=== PATIENT | male | born 1955 | race Caucasian/White ===

== ENCOUNTER → 2017-09-29 08:40 | Outpatient (CLI) | payer OTHER, SELFPAY ==
--- NOTE | 2017-09-29 08:47 | MRI_ITS ---
STUDY: MRI LUMBAR SPINE WITHOUT CONTRAST REASON FOR EXAM: Male, 62 years old. BACK AND BILAT LEG PAIN TECHNIQUE: Standardized fat and water weighted pulse sequences were obtained in the sagittal and axial planes. COMPARISON: None FINDINGS: T12-L1: Normal endplates. Normal disc height, hydration and morphology. Normal bilateral facet joints. Normal central canal and bilateral lateral recesses. Normal bilateral intervertebral neural foramina. Normal lumbar lordosis. There is no substantial scoliosis. Normal conus medullaris that terminates at the L1 level. L1-2: Endplate spondylosis. Central and left paracentral disc herniation migrating upward 10 mm probably extruded. Impinging on the left nerve roots of the cauda equina. Degenerative changes of the bilateral facet joints. Mild narrowing of the central canal and bilateral intervertebral neural foramina. L2-3: Endplate spondylosis. Decreased disc height and small circumferential disc bulge. Degenerative changes of the bilateral facet joints. Mild narrowing of the central canal and bilateral intervertebral neural foramina. L3-4: Endplate spondylosis. Decreased disc height and small circumferential disc bulge. Degenerative changes of the bilateral facet joints. Moderate narrowing of the central canal and bilateral intervertebral neural foramina. L4-5: Endplate spondylosis. Decreased disc height and small circumferential disc bulge. Degenerative changes of the bilateral facet joints. Moderate narrowing of the central canal and severe narrowing of the bilateral intervertebral neural foramina worse on the left side. L5-S1: Normal endplates. Normal disc height, hydration and morphology. Normal bilateral facet joints. Normal central canal and bilateral lateral recesses. Normal bilateral intervertebral neural foramina. Normal visualized sacral ala. Normal visualized paraspinous soft tissue structures. MRI/Spine Lumbar (Routine) IMPRESSION: Multilevel degenerative changes, as described above. Extruded disc herniation at L1-2. Electronically Signed: Deana Devi MD at 10:41 EST Tel , Service support ,
== END ==
PROVIDERS: Family Provider Family Medicine; PCP Family Medicine; Visit Provider Anesthesiology Pain Medicine
DX: M47.896 Other spondylosis, lumbar region (principal); M51.26 Other intervertebral disc displacement, lumbar region; M48.061 Spinal stenosis, lumbar region without neurogenic claudication; M79.606 Pain in leg, unspecified
CPT/HCPCS: 72148

== ENCOUNTER → 2017-11-22 06:33 | Outpatient (CLI) | payer OTHER, SELFPAY ==
--- NOTE | 2017-11-22 06:47 | MRI_ITS ---
STUDY: MRI CERVICAL SPINE WITHOUT CONTRAST REASON FOR EXAM: Male, 62 years old. Neck pain and tingling of the right upper extremity TECHNIQUE: Standardized fat and water weighted pulse sequences were obtained in the sagittal and axial planes. COMPARISON: None FINDINGS: Normal foramen magnum and brainstem-cervical cord junction. Normal craniovertebral junction. Normal anterior atlantoaxial articulation. Normal odontoid process. Decreased cervical lordosis. Normal vertebral bodies and posterior osseous elements. C2-3: Normal endplates. Normal disc height, signal and minor bulging of the disc. Normal central canal. Mild to moderate left neural foraminal encroachment secondary to bony hypertrophy C3-4: Endplate spurring.. Normal disc height, signal and mild bulging disc osteophyte complex. Normal central canal. Severe left neural foraminal stenosis secondary to bony hypertrophy and occluded right nerve root foramen secondary to bony hypertrophy C4-5: Grade 1 retrolisthesis. Moderate endplate spurring. Mild to moderate bulging disc osteophyte complex with associated small central disc protrusion narrowing the spinal canal and mildly compressing the cord. Severe bilateral neuroforaminal stenosis secondary to bony hypertrophy C5-6: Status post anterior fusion of C5-6 and C6-7. Small right posterolateral osteophyte protrusion. Normal central canal.. Normal bilateral neural neuroforamina C6-7: Status post anterior fusion. No focal disc protrusion.. Normal central canal and intervertebral neural foramina. C7-T1: Grade 1 spondylolisthesis. Mild pseudobulging of the disc. Normal central canal. Severe bilateral neuroforaminal stenosis secondary to bony hypertrophy There is also bulging disc at T1-T2 mildly narrowing the central canal and creating severe bilateral neuroforaminal stenosis Normal cervical cord. Normal visualized soft tissue structures. MRI/Spine Cervical (Routine) IMPRESSION: No evidence for acute fracture or subluxation Status post anterior fusion at C5-6 and C6-7 Multilevel spinal stenosis secondary to disc disease and bony hypertrophy with findings as above Electronically Signed: Vahe Lanza MD at 21:12 EDT , Service support ,
== END ==
PROVIDERS: Family Provider Family Medicine; PCP Family Medicine; Visit Provider Anesthesiology Pain Medicine
DX: M50.31 Other cervical disc degeneration, high cervical region (principal); M48.02 Spinal stenosis, cervical region
CPT/HCPCS: 72141

== ENCOUNTER → 2018-02-05 13:02 | Outpatient (CLI) | payer OTHER, SELFPAY ==
--- NOTE | 2018-02-05 13:07 | RAD_ITS ---
STUDY: X-RAY - LUMBAR SPINE REASON FOR EXAM: Male, 62 years old. Back pain TECHNIQUE: 4 view(s) of the lumbar spine were obtained. COMPARISON: September 29, 2017 FINDINGS: There are NO fractures. There are NO malalignments. There is degenerative loss of disc height at L3-L4, L4-5 and L5-S1. There is bilateral facet hypertrophy at L4-5 and L5-S1. The sacrum and sacroiliac joints are intact. There are bilateral kidney stones. RAD/L/S Spine Min 4 Views IMPRESSION: There are degenerative changes as described. There is NO fracture or malalignment. There is NO subluxation with flexion and extension. Electronically Signed: Bienvenido Deutsch MD at 3:56 EDT , Service support ,
--- NOTE | 2018-02-05 13:55 | RAD_ITS ---
STUDY: X-RAY - CERVICAL SPINE REASON FOR EXAM: Male, 62 years old. Neck pain TECHNIQUE: 4 view(s) of the cervical spine were obtained. COMPARISON: None FINDINGS: There has been fusion of C5-C6, C6-C7. There is advanced degenerative loss of disc height at C4-C5. There is grade 1 anterior spondylolisthesis of C3 over C4 which is stable with flexion and extension views. There are NO fractures. The facet joints are intact. The soft tissues are unremarkable. RAD/Cerv Spine 4 or 5 Views IMPRESSION: There are postsurgical and degenerative changes of the cervical spine as described. There is NO acute abnormality. Electronically Signed: Bienvenido Deutsch MD at 7:35 EDT , Service support ,
== END ==
PROVIDERS: Family Provider Family Medicine; PCP Family Medicine; Visit Provider Orthopaedic Surgery
DX: M51.37 Other intervertebral disc degeneration, lumbosacral region (principal); M50.321 Other cervical disc degeneration at C4-C5 level; M43.12 Spondylolisthesis, cervical region
CPT/HCPCS: 72050; 72110

== ENCOUNTER 2018-03-11 17:30 | Outpatient (RCR) | payer OTHER, SELFPAY ==
--- NOTE | 2018-02-13 17:47 | HP.PTEVAL_ITS ---
Patient's Visit Information IVAN ZHANG is a 62 year old M referred to Physical Therapy by Zulma Marques with a diagnosis of CERVICAL STENOSIS AND LEFT LUMBAR RADICULOPATHY. Date of Evaluation: 02/13/18 Physical Therapist: Lawrence Gonzalez, PT, - Visit Plan Frequency: 2x /Week Duration: 4 Weeks Plan: Aquatic PT for DLS,CERVICAL /LUMBAR ROM ,POSTURAL EX'S,CONDITIONING - Subjective Subjective: This 62 y/o male presents to physical therapy with cervical stenosis and left lumbar radiculopathy. Patient has cervical and lumbar pain many years. Patient had cervical fusion C5-7 1994. Patient has been increasing symptoms with arm parathesia and intermittant left pain worse left greater than right.Patient had MRI cervical stenosis/disc ,anteriorlothesis and lumbar extruded disc and stenosis. Denies dizziness/CASTILLO/tiinutus. Symptoms worse with driving,ADL'S turning cervical with radicular symptoms to hand. Lumbar symptoms worse in bending,lifting ,driving 2 hours walking. Symptoms better with rest. Bowel/bladder -. Coughing/sneezing +. Sleeping normally okay at night.Patient has had several epidural injection pain management. SOCIAL: . VOCATION: [employer] - Pain Bilateral Neck Pain Intensity (Out of 10): 8 Pain Intensity Range: 10 Right Shoulder Pain Intensity (Out of 10): 5 Pain Intensity Range: 10 Bilateral Back Pain Intensity (Out of 10): 6 Pain Intensity Range: 10 Bilateral Lower Extremity Pain Intensity (Out of 10): 4 Pain Intensity Range: 10 - Objective POSTURE: mild foward posture. GAIT: normal juan. NEURO: c/o right arm , light touch intact ,reflexes L3-4,L4-5,L5-S1,C5-6-7 2/3. AROM: BUE WFL. CERVICAL ROM: flexion mod loss,extension mod/severe mod loss pain,lateral flexion /rotation mod loss pain. LUMBAR ROM: flexion mod loss pain ,extension mod severe loss pain ,side glides mod loss pain. MMT: QUADS/HAMS 4/5,HIP FLEXION 4-/5 ,ANKLE 5/5,GREAT TOE EXTENSORS 4/5. SYMMTRIES: align. FLEXABLITY : hams min tight - Special Tests C/S Radiculapathy - Left Upper limb tension test: Negative C/S Radiculapathy - Right Upper limb tension test: Negative C/S Radiculapathy - Left Spurlings: Positive C/S Radiculapathy - Right Spurlings: Positive L/S Slump test left side: Negative L/S Slump test right side: Negative L/S Left Straight Leg Raise: Negative L/S Right Straight Leg Raise: Negative - Goals Goal 1:: Independant with Aquatic PT Goal Time Frame: 4-6 Weeks Goal 2:: Independant with posture for ADL'S Goal Time Frame: 4-6 Weeks Goal 3:: Patient derease cervical and lumbar pain by 50% or greater to improve function for ADL'S and housework chores. Goal Time Frame: 4-6 Weeks Goal 4:: Patient improve function of recovery for QOL. Goal Time Frame: 4-6 Weeks Goal 5:: Patient be able to perform ADL'S and housework tasks with min limiations Goal Time Frame: 4-6 Weeks - Rehabilitation Potential Physical Therapy Diagnosis: This patient has cervical stenosis and lumbar HNP / stenosis causing weakness UE right geater than left with poor ROM cervical/ lumbar impairs ADLS and function thus benifit from Skilled PT Rehabilitation Potential: Fair - Anticipated Interventions Patient/Client Instruction: Educate patient on: Condition, Plan of Care For the Purpose of:: To decrease pain, To increase ROM, To improve muscle performance and motor function, To improve ability to perform ADL's, To increase tolerance to activity/condition/position, To improve performance and independence with ADL's, To improve ability of physical actions for home/ community/work/leisure, To improve health of tissue, To decrease soft tissue restriction, To increase flexibility/ROM, To improve ability to perform tasks related to life management Therapeutic Exercise to Include: Strength training, Endurance training, Postural training, Flexibilty training, In an aquatic setting, Active ROM For the Purpose of:: To decrease pain, To increase ROM, To improve muscle performance and motor function, To improve ability to perform ADL's, To increase tolerance to activity/condition/position, To improve ability of physical actions for home/community/work/leisure, To increase flexibility/ROM, To improve endurance, To reduce risk of recurrence, To improve ability to perform tasks related to life management Thank you for the opportunity to evaluate your patient. For Medicare and Medicare HMO plans, please review the plan of care and approve it. It will need to be FAXED BACK to us at [phone] for Medicare purposes. Please let me know if there are questions or concerns regarding this plan of care. Physician Signature: Date:
--- NOTE | 2018-06-12 15:16 | HP.PTDCNRP_ITS ---
HP - Discharge Summary (1) - Patient Information IVAN ZHANG was seen in my office for initial evaluation on 02/13/18. The following Plan of Care was established for this patient: Initial Frequency: 2x /Week Initial Duration: 4 Weeks - Anticipated Interventions Patient/Client Instruction: Educate patient on: Condition, Plan of Care For the Purpose of:: To decrease pain, To increase ROM, To improve muscle per formance and motor function, To improve ability to perform ADL's, To increase tolerance to activity/condition/position, To improve performance and independence with ADL's, To improve ability of physical actions for home/community/work/leisure, To improve health of tissue, To decrease soft tissue restriction, To increase flexibility/ROM, To improve ability to perform tasks related to life management Therapeutic Exercise to Include: Strength training, Endurance training, Postural training, Flexibilty training, In an aquatic setting, Active ROM For the Purpose of:: To decrease pain, To increase ROM, To improve muscle performance and motor function, To improve ability to perform ADL's, To increase tolerance to activity/condition/position, To improve ability of physical actions for home/community/work/leisure, To increase flexibility/ROM, To improve endurance, To reduce risk of recurrence, To improve ability to perform tasks related to life management This patient was last seen in our office 03/11/18. Pertinent comments regarding their Physical therapy will appear below: Patient seen for PT cervical and lumbar pain for Aquatic PT . Patient had injection pain management due to pain. At this point patient is d/c. At this point I will be discontinuing this patient from physical therapy. I would be happy to see this patient again in the future if found appropriate by the physician. Thank you! Lawrence Gonzalez, PT,
== END 2018-03-11 19:00 | disposition home or self-care (01) ==
LOC: PT 17:30
PROVIDERS: Family Provider Family Medicine; PCP Family Medicine; Visit Provider Orthopaedic Surgery
DX: M48.02 Spinal stenosis, cervical region (principal); M54.16 Radiculopathy, lumbar region
CPT/HCPCS: 97113; 97162

== ENCOUNTER → 2019-07-04 08:40 | Outpatient (CLI) | payer OTHER, SELFPAY ==
[2019-06-28 12:38] VITALS: BMI 30.4
--- NOTE | 2019-07-04 16:09 | NEURO ---
NCS and/or EMG Patient Report HPI: Patient is a 64-year-old male who presented with pain, numbness and tingling in the left knee to the left foot which has been going on for 2 years. Symptoms has worsened after receiving injection in the back several months ago. Patient has history of degenerative disc disease and herniated disks in the back. Patient also has compressed disc with the fusion in the neck. Patient does not have a history of diabetes. Physical Exam: Decreased sensation to light touch in the left lateral knee and left lower lateral extremity up to the left foot. No any other significant sensory deficit noted on examination. Mild distal weakness in distal lower extremities. Mild lumbar spasm and tenderness noted. Findings: 1. Normal nerve conduction studies of right and left sural and superficial peroneal sensory nerves. 2. Normal nerve conduction studies of right and left peroneal and tibial motor nerves. 3. Normal needle examination of bilateral lower extremities including lumbar paraspinal muscles except decreased recruitment in the right and left extensor digitorum brevis muscles. Impression: 1. Normal EMG and nerve conduction studies of bilateral lower extremities. 2. No electrodiagnostic evidence of peripheral neuropathy, lumbar plexopathy or radiculopathy in bilateral lower extremities. Recommendation: Clinical correlation and appropriate work-up is recommended.
== END ==
PROVIDERS: Family Provider Family Medicine; PCP Family Medicine; Referring Provider Anesthesiology Pain Medicine; Visit Provider Anesthesiology Pain Medicine
DX: M79.606 Pain in leg, unspecified (principal)
CPT/HCPCS: 95886; 95910

== ENCOUNTER → 2019-10-03 09:52 | Outpatient (CLI) | payer OTHER, SELFPAY ==
[2019-06-28 12:38] VITALS: BMI 30.4
[2019-10-03 11:19] LABS: BUN 19 mg/dL (7-18); Creatinine, Serum 1.07 mg/dL (0.70-1.30); Glucose 99 mg/dL (74-106)
[2019-10-03 11:20] LABS: Anion Gap 7 (5-15); BUN/Creat Ratio 17.8 RATIO (10-20); Calcium,Total 9.5 mg/dL (8.5-10.1); Chloride 107 mmol/L (98-107); Cholesterol 177 mg/dL (200); EST Glomerular Filtration Rate 74 mL/min (>60); Est Glom Filt Rate - Afr Amer 90 mL/min (>60); High Density Lipoprotein 34 mg/dL; Sodium Level 139 mmol/L (136-145); Triglycerides 261 mg/dL; Very Low Density Lipoprotein 52 mg/dL (5-40)
== END ==
PROVIDERS: PCP Family Medicine; Referring Provider Family Medicine; Visit Provider Family Medicine
DX: I10 Essential (primary) hypertension (principal); Z13.220 Encounter for screening for lipoid disorders
CPT/HCPCS: 36415; 80048; 80061

== ENCOUNTER → 2020-07-08 08:18 | Outpatient (CLI) | payer OTHER, SELFPAY ==
[2020-07-08 07:59] VITALS: BMI 29.2
[2020-07-08 08:33] LABS: Absolute Lymphocyte Count 2.89 X10^3/uL (0.83-4.51); Absolute Neutrophil Count 6.1 X10^3/uL (2.0-7.7); Basophil# 0.04 X10^3/uL; Basophil% 0.4 % (0-1); Eosinophil# 0.13 X10^3/uL; Eosinophils% 1.3 % (0-5); Hematocrit 41.9 % (40-54); Hemoglobin 14.3 g/dL (13.0-16.5); Lymphocyte # 2.89 X10^3/ul (4.0); Lymphocyte % 29.2 % (19-41); Mean Corp Hgb Conc 34.1 g/dL (32-36); Mean Corpuscular Hgb 31.4 pg (27.0-32.0); Mean Corpuscular Volume 92.1 fL (80-94); Mean Platelet Vol. 9.7 fl (6.2-12.0); Monocyte% 7.1 % (0-10); NRBC Flagged by Analyzer 0 % (0-5); Neutrophil % 61.6 % (47-70); Platelet Count 246 K/mm3 (150-450); RBC Distribution Width CV 12.3 % (11.6-14.6); RBC Distribution Width SD 41.7 fl (35.1-43.9); Red Blood Count 4.55 M/mm3 (4.6-6.2); White Blood Count 9.9 K/mm3 (4.4-11.0)
[2020-07-08 08:49] LABS: ALB/GLOB Ratio 1.1 RATIO (0.9-2.4); AST(SGOT) 20 U/L (15-37); Alanine Aminotransfer ALT/SGPT 51 U/L (16-61); Alkaline Phosphatase 88 U/L (45-117); Anion Gap 6 (5-15); BUN 25 mg/dL (7-18); BUN/Creat Ratio 20.3 RATIO (10-20); Calcium,Total 9.4 mg/dL (8.5-10.1); Chloride 106 mmol/L (98-107); Creatinine, Serum 1.23 mg/dL (0.70-1.30); EST Glomerular Filtration Rate 63 mL/min (>60); Est Glom Filt Rate - Afr Amer 76 mL/min (>60); Globulin 3.5 g/dL (2.2-4.2); Glucose 99 mg/dL (74-106); Lipase 315 U/L (73-393); Potassium 4.1 mmol/L (3.5-5.1); Protein, Total 7.5 g/dL (6.4-8.2); Sodium Level 140 mmol/L (136-145)
== END ==
PROVIDERS: PCP Family Medicine; Referring Provider Surgery; Visit Provider Surgery
DX: R10.9 Unspecified abdominal pain (principal); R19.7 Diarrhea, unspecified
CPT/HCPCS: 36415; 80053; 83690; 85025

== ENCOUNTER 2020-07-13 06:00 | Day surgery (SDC) | payer OTHER, SELFPAY ==
[2020-07-08 07:59] VITALS: BMI 29.2
[2020-07-13] VITALS (7 sets, daily range): BP systolic 105–152; BP diastolic 67–96; PULSE 69–82; RESP 16–18; TEMP 36.2–36.6; O2SAT 94–96; BMI 29.2
--- NOTE | 2020-07-13 06:15 | HP.PCM_ITS ---
Problem List (1) Diarrhea Status: Acute Qualifiers: (2) Epigastric pain Status: Acute History and Physical Date of Admission: 07/13/20 MR#:[id number]:[id number] Name: IVAN ZHANG Rep #: [id number] : 1955 Provider: Dr. Kendrick Carr MD Age/Sex: 65/M Location[place] [facility] [place] Status: Signed with Addenda ADDENDUM by Dr. Mike Carr MD on 07/08/20 at 0818 Addendum entered and electronically signed by Mike Carr MD 07/08/20 08:18: Because of his cervical disc and lumbar disc disease I will utilize monitored anesthesia care. We will need to carefully support his neck throughout the procedure. Mike Carr M.D., F.A.C.S. Intake Chief Complaint: diarrhea/ LUQ pain Allergies Sulfa (Sulfonamide Antibiotics) Allergy (Verified 07/08/20 08:02) Unknown PCN Allergy (Uncoded 06/27/17 15:40) Unknown Medications Atenolol [Tenormin (Beta Mona)] 50 mg PO DAILY 06/22/17 [History Confirmed 07/08/20] Celecoxib [Celebrex] 200 mg PO BID 06/22/17 [History Confirmed 07/08/20] Orphenadrine [Norflex ER] 100 mg PO BID PRN #12 tab 06/22/17 [Rx Confirmed 07/08/20] mv-min-vit C-ascorb Vt-Yqx-Sav-herb #124 333 mg-1.7 mg chewable tablet mg PO tab 06/28/19 [History Confirmed 07/08/20] acetaminophen 650 mg tablet,extended release 650 mg PO Q12H PRN 07/08/20 [History Confirmed 07/08/20] cyclosporine 0.05 % eye drops 1 drp OPHTHALMIC Q12H 07/08/20 [History Confirmed 07/08/20] gabapentin 300 mg capsule 300 mg PO TID PRN 07/08/20 [History Confirmed 07/08/20] Assessment & Plan Problems 1. Epigastric pain R10.13 2. Diarrhea, unspecified type R19.7 Plan - Dr. Mike Carr MD 65-year-old gentleman. 1 year history of diarrhea improved but not resolved with gluten-free diet. He reports that allergy testing was negative. He does require Celebrex because of psoriatic arthritis and fibromyalgia. He has never had a colonoscopy but the Cologuard was negative. Despite the gluten-free diet he persists with left upper quadrant epigastric pain. He states that on a daily basis he lives in generalized musculoskeletal discomfort. He denies any family history of colon cancer. Allergy testing was negative. I recommend to him a combined esophagogastroduodenoscopy with possible biopsy and colonoscopy with anticipated random biopsies and possible polypectomy if indicated. He is aware of the technique, benefit, risk, alternatives. He has had an opportunity to ask and have questions answered. He is aware of COVID-19. We will schedule and try to expedite his care. I anticipate obtaining a CMP and CBC with differential and lipase level. If I cannot find an etiology on endoscopy then perhaps a CT scan of the abdomen pelvis might be pertinent. An additional thought after the endoscopy of no definitive diagnosis is identified for the patient to temporarily hold his Celebrex to see if that improved his situation at all. He has been instructed if this is a potential. Copy: Dr. Mike Carr M.D., F.A.C.S. Orders Orders: Colonoscopy Today R10.9, R19.7 EGD Today R10.9, R19.7 Comprehensive Metabolic Profil Today R10.9, R19.7 CBC W/Diff, Automated Today R10.9, R19.7 Lipase Today R10.9, R19.7 07/08/20 0818 <Electronically signed by Mike olmos MD> Date _ Mike Carr MD cc: Dr. Mike Singh MD ~* Signed Intake Vital Signs 07/08/20 Height 5 ft 9.5 in 07/08/20 Weight: 201 lb 4 oz 07/08/20 BMI 29.2 07/08/20 BP 161/95 H 07/08/20 Blood Pressure Location Rt brachial 07/08/20 Position Sitting 07/08/20 Respiration 20 H 07/08/20 Pulse 64 07/08/20 Pulse Source NIBP 07/08/20 Temp 97.5 F L 07/08/20 Temp Source Temporal 07/08/20 Pulse Oximetry (%) 95 07/08/20 Oxygen Delivery Method room air Intake Visit Reasons: DIARRHEA, ABDOMINAL PAIN, CSCOPE Chief Complaint: diarrhea/ LUQ pain Soda Worker Required: No Is patient in pain?: No Allergies Sulfa (Sulfonamide Antibiotics) Allergy (Verified 07/08/20 08:02) Unknown PCN Allergy (Uncoded 06/27/17 15:40) Unknown Medications Atenolol [Tenormin (Beta Mona)] 50 mg PO DAILY 06/22/17 [History Confirmed 07/08/20] Celecoxib [Celebrex] 200 mg PO BID 06/22/17 [History Confirmed 07/08/20] Orphenadrine [Norflex ER] 100 mg PO BID PRN #12 tab 06/22/17 [Rx Confirmed 07/08/20] mv-min-vit C-ascorb Bg-Dtq-Sut-herb #124 333 mg-1.7 mg chewable tablet mg PO tab 06/28/19 [History Confirmed 07/08/20] acetaminophen 650 mg tablet,extended release 650 mg PO Q12H PRN 07/08/20 [History Confirmed 07/08/20] cyclosporine 0.05 % eye drops 1 drp OPHTHALMIC Q12H 07/08/20 [History Confirmed 07/08/20] gabapentin 300 mg capsule 300 mg PO TID PRN 07/08/20 [History Confirmed 07/08/20] PFSH Medical History (Updated 07/08/20 @ 08:[address] Mike Carr MD) Diarrhea (Acute) Epigastric pain (Acute) Arthritis (Acute) Fibromyalgia (Acute) Hemorrhoids (Acute) Herniated lumbar disc without myelopathy (Acute) Psoriatic arthritis (Acute) Rheumatoid arthritis (Acute) Severe headache (Acute) Shortness of breath (Acute) neck and back pain (Acute) Hypertension (Chronic) Surgical History (Updated 07/08/20 @ 07:58 by Rossy Bravo) History of vasectomy (Acute) h/o cervical spine fusion (Acute) Family History (Updated 07/08/20 @ 07:59 by Rossy Bravo) Father Heart disease Brother Heart disease Other Arthritis Social History (Updated 07/08/20 @ 08:[address] Mike Carr MD) Smoking Status: Never smoker alcohol intake: current HPI HPI HPI: IVAN ZHANG, is a 65 M who presents to the office today for surgical consultation regarding abdominal pain and intractable diarrhea. The patient is referred by Dr. iMke Singh and a written copy of my surgical consult and recommendations will be returned to him. For a year intermittently the patient's had pretty for profuse diarrhea. He has not noticed any bright red blood per rectum or melena. He did not have any weight loss associated with that. He has not noticed any mucus. There is no family history of colon cancer. A Cologuard test was obtained and was negative. About 2 months ago he was placed on a gluten-free diet which seems to have improved his symptoms but he still has generalized soreness particularly in the left upper quadrant and left midabdomen. He had about a 10 pound weight loss after putting up being put on the gluten-free diet. He does have several medical problems including psoriatic arthritis and degenerative joint disease with cervical and lumbar disc compression and hypertension. It is of note that he does take a significant amount of pain medication including Celebrex and gabapentin and acetaminophen. HPI HPI HPI: IVAN ZHANG, is a 65 M who presents to the office today for ROS General General: Yes weight change and fatigue; no appetite, colon cancer, breast cancer or weakness HEENT HEENT: No difficulty swallowing, eye injury, eye surgery, swollen glands or hoarseness Endo Endocrine: No thyroid disease, diabetes mellitus, thyroid cancer, Hair loss, heat intolerance or cold intolerance Musc Musculoskeletal: Yes back problems, arthritis and joint pain; no rheumatoid arthritis or gout Cardio Cardiovascular: Yes high blood pressure; no murmur, pacemaker, heart disease, atrial fibrillation, heart attack, heart stent, palpitations, shortness of breat with exertion or chest pain Psych Psychiatric: No depression, anxiety or hearing voices Resp Respiratory: Yes shortness of breath, No sleep apnea, Yes cough, No COPD, No asthma, No emphysema, No wheezing Gastro Gastrointestinal: Yes abdominal pain, No nausea or vomiting, Yes diarrhea, No constipation, No blood in stool, No acid reflux, Yes hemorrhoids, No ulcers, No gallbladder problem, No black,tarry stools Jaya Hematologic: No blood thinners, No blood disorders, No bleeding, No anemia, No blood clots Neuro Neurologic: No weakness Exam Const General: cooperative, comfortable, no acute distress Nutritional Appearance: overweight Orientation: alert, awake HENTN Head: normal to inspection Eyes General: appearance normal, both eyes and all related structures Chest Chest palpation & inspection: normal inspection of the chest Resp Effort & Inspection: normal respiratory effort Auscultation: clear to auscultation bilaterally Cardio Rate: regular rate Heart Sounds: no murmurs GI Palpation: soft, hepatosplenomegaly Other: Mild diffuse nonspecific tenderness particularly left upper quadrant. Normal bowel sounds. No rebound or guarding Musc Cervical Spine: cervical ROM normal (Decreased) Neuro General: alert, awake Cognition: normal cognition Extrem General: no calf tenderness Psych Affect: normal affect Assessment & Plan Problems 1. Epigastric pain R10.13 2. Diarrhea, unspecified type R19.7 Plan 65-year-old gentleman. 1 year history of diarrhea improved but not resolved with gluten-free diet. He reports that allergy testing was negative. He does require Celebrex because of psoriatic arthritis and fibromyalgia. He has never had a colonoscopy but the Cologuard was negative. Despite the gluten-free diet he persists with left upper quadrant epigastric pain. He states that on a daily basis he lives in generalized musculoskeletal discomfort. He denies any family history of colon cancer. Allergy testing was negative. I recommend to him a combined esophagogastroduodenoscopy with possible biopsy and colonoscopy with anticipated random biopsies and possible polypectomy if indicated. He is aware of the technique, benefit, risk, alternatives. He has had an opportunity to ask and have questions answered. He is aware of COVID-19. We will schedule and try to expedite his care. I anticipate obtaining a CMP and CBC with differential and lipase level. If I cannot find an etiology on endoscopy then perhaps a CT scan of the abdomen pelvis might be pertinent. An additional thought after the endoscopy of no definitive diagnosis is identified for the patient to temporarily hold his Celebrex to see if that improved his situation at all. He has been instructed if this is a potential. Copy: Dr. Mike Carr M.D., F.A.C.S. I have re-examined the patient. There are no clinical changes since date of exam. Procedure Criteria Procedure Type: Elective COVID Risk Discussion: The surgeon/proceduralist and patient have discussed in detail the risk of exposure to and/or potential harm posed by the COVID-19 virus with having a surgery/procedure at this time versus the risk of delaying the surgery/procedure. It is not possible to know either the risk of delaying the surgery or procedure or chance of getting an infection with perfect accuracy, but a joint decision was made between the patient and the surgeon/proceduralist to proceed at this time with the scheduled surgery/procedure as indicated on the consent form.
[2020-07-13] MEDS: Lactated Ringers 1,000 ML 100 ML IV (06:36)
--- NOTE | 2020-07-13 07:15 | IMM_PTH ---
PATIENT: IVAN ZHANG LOC: EN U#:[id number] AGE/SX: 65/M ROOM: RE07/13/[address]: Dr. Mike Carr MD : 1955 BED: DIS: 07/13/2020 SPEC #: [id number] RECD: 07/13/20 11:38 STATUS: THOMAS REQ #: [id number] CIRO: 07/13/20 07:[address]: Mike Carr DEPT: IMMUNOHISTOCHEMISTRY RECD BY: Lucy Santacruz ENTERED: 07/13/20 11:38 SP TYPE: IMMUNO OTHR DR: Dr. Mike Singh MD Tissues: B - Stomach, NOS Procedures: H Pylori (initial) PHYSICIAN & INSTITUTION [place] [address] SPECIMEN INFORMATION: Tissue Source: B - Antral biopsy Clinical Info: Epigastric pain; diarrhea Specimen Number: [id number] CPT code: 85597 METHODOLOGY: Deparaffinized sections of prefer/formalin-fixed tissue or PAP/DQ stained slides are incubated with monoclonal/polyclonal antibodies/oligonucleotide probes. Localization is made via biotin free immunoperoxidase method. Appropriate controls are performed and reacted as expected. Results on target cell population are indicated in the following table: RESULTS: ANTIBODY / CLONE RESULT Block B H Pylori (polyclonal) negative These tests were developed and their performance characteristics determined by [facility]. They may not have been cleared or approved by the U.S. Food and Drug Administration. The FDA has determined that such clearance or approval is not necessary. INTERPRETATION: B. Antral biopsy: Negative for Helicobacter pylori organisms. SJ:nicolle 07/14/20
--- NOTE | 2020-07-13 07:15 | EGD_PTH ---
PATIENT: IVAN ZHANG LOC: EN U#:[id number] AGE/SX: 65/M ROOM: RE07/13/[address]: Dr. Mike Carr MD : 1955 BED: DIS: 07/13/2020 SPEC #: [id number] RECD: 07/13/20 08:49 STATUS: THOMAS JUNIORMonika #: [id number] CIRO: 07/13/20 07:[address]: Mike Carr DEPT: SURGICAL PATHOLOGY RECD BY: Sharon Hollis ENTERED: 07/13/20 10:38 SP TYPE: EGD BIOPSY OT DR: Dr. Mike Singh MD Tissues: A - Duodenum, NOS B - Gastric mucous membrane C - Esophagus, NOS D - COLON BIOPSY Procedures: Special Stain Group II Special Stain Group I Surgery Specimen Level IV GMS Stain (control) Alcian Blue/PAS (control) HEADER OPERATION: [place] [place] DIAGNOSIS: Epigastric pain, diarrhea TISSUE SUBMITTED: A - Duodenal biopsy, B - Antral biopsy for H. pylori and pathology, C - Distal esophageal biopsies, D - Random colon biopsies MICROSCOPIC DIAGNOSIS A. Duodenum, biopsy: A fragment of duodenal mucosa, no pathologic diagnosis. B. Antral biopsy: Mild gastritis. See microscopic description and comment. C. Distal esophageal biopsy: Fragments of gastroesophageal mucosa with focal ulceration, fibrinous exudation and acute and chronic inflammation. Intestinal metaplasia (goblet cell metaplasia) not identified. Special stain for fungi is negative for organisms; matched control is appropriate. See comment. D. Colon, random biopsy: Fragments of colonic mucosa, no pathologic diagnosis. SJ:nicolle 07/14/20 COMMENT B. The results of immunohistochemistry for Helicobacter pylori will be reported separately ([id number]). C. Alcian blue/PAS stain with matched control is used in the evaluation of the specimen. MICROSCOPIC DESCRIPTION Slides are reviewed. B. The specimen shows fragments of gastric mucosa with chronic inflammatory cell infiltrates in the lamina propria consisting of lymphocytes and plasma cells, consistent with mild chronic gastritis. GROSS DESCRIPTION A - Received in fixative is one container labeled with the patient's name and designated duodenal biopsy. The specimen consists of one irregular fragment of light hernández soft tissue that measures 0.3 x 0.3 x 0.1 cm. The specimen is totally submitted in one cassette. B - Received in fixative is one container labeled with the patient's name and designated antral biopsy. The specimen consists of one irregular fragment of light hernández soft tissue that measures 0.4 x 0.3 x 0.1 cm. The specimen is totally submitted in one cassette. C - Received in fixative is one container labeled with the patient's name and designated distal esophageal. The specimen consists of multiple irregular fragments of light hernández soft tissue that in aggregate measure 1 x 1 x 0.1 cm. The specimen is totally submitted in one cassette. D - Received in fixative is one container labeled with the patient's name and designated random colon biopsy. The specimen consists of multiple irregular fragments of light hernández soft tissue that in aggregate measure 1.5 x 0.5 x 0.1 cm. The specimen is totally submitted in one cassette. / SJ:nicolle 07/13/20 TC:2 CPT: 48982 x4, 89693, 73799
--- NOTE | 2020-07-13 07:40 | OP.CCLET_ITS ---
07/13/2020 Mike Singh [address] [place] [address] Re : Upper GI endoscopy procedure for Haris Greene Dear Dr. Singh This procedure was performed on Monday, July 13, 2020. My impressions and recommendations are as follows: Impressions : - LA Grade B reflux esophagitis. Biopsied. - Small hiatal hernia. - Chronic gastritis. Biopsied. - Erythematous duodenopathy. Biopsied. Recommendations : - Discharge patient to home. - Resume previous diet. - Continue present medications. - Use Prilosec (omeprazole) 40 mg PO daily. - Telephone my office for pathology results in 1 week. GERD likely source of epigatric pain My findings are described in the full procedure note, which is enclosed. If I can be of further assistance, please feel free to contact me at Doctor phone number(s): Work: . Sincerely, Mike Carr MD 07/13/2020 7:39:47 AM This report has been signed electronically.
--- NOTE | 2020-07-13 07:40 | OP.EGD_ITS ---
Patient Name: Haris Greene Procedure Date: 07/13/2020 7:00 AM Date of : 1955 Age: 65 Procedure: Upper GI endoscopy Indications: Epigastric abdominal pain Providers: Mike Carr MD Referring MD: Mike Singh Medicines: See the Anesthesia note for documentation of the administered medications Complications: No immediate complications. Procedure: Pre-Anesthesia Assessment: - Prior to the procedure, a History and Physical was performed, and patient medications and allergies were reviewed. The patient's tolerance of previous anesthesia was also reviewed. The risks and benefits of the procedure and the sedation options and risks were discussed with the patient. All questions were answered, and informed consent was obtained. Prior Anticoagulants: The patient has taken no previous anticoagulant or antiplatelet agents. ASA Grade Assessment: II - A patient with mild systemic disease. After reviewing the risks and benefits, the patient was deemed in satisfactory condition to undergo the procedure. After obtaining informed consent, the endoscope was passed under direct vision. Throughout the procedure, the patient's blood pressure, pulse, and oxygen saturations were monitored continuously. The gastroscope was introduced through the mouth, and advanced to the second part of duodenum. The upper GI endoscopy was accomplished without difficulty. The patient tolerated the procedure well. Scope In: 7:11:08 AM Scope Out: 7:19:36 AM Total Procedure Duration Time 0 hours 8 minutes 28 seconds Findings: LA Grade B (one or more mucosal breaks greater than 5 mm, not extending between the tops of two mucosal folds) esophagitis with no bleeding was found 41 cm from the incisors. Biopsies were taken with a cold forceps for histology. A small hiatal hernia was present. Diffuse moderate inflammation characterized by erythema was found in the gastric antrum. Biopsies were taken with a cold forceps for histology. Diffuse mildly erythematous mucosa without active bleeding and with no stigmata of bleeding was found in the duodenal bulb. Biopsies were taken with a cold forceps for histology. Impression: - LA Grade B reflux esophagitis. Biopsied. - Small hiatal hernia. - Chronic gastritis. Biopsied. - Erythematous duodenopathy. Biopsied. Recommendation: - Discharge patient to home. - Resume previous diet. - Continue present medications. - Use Prilosec (omeprazole) 40 mg PO daily. - Telephone my office for pathology results in 1 week. GERD likely source of epigatric pain Procedure Code(s): --- Professional --- 63796, Esophagogastroduodenoscopy, flexible, transoral; with biopsy, single or multiple Diagnosis Code(s): --- Professional --- K21.0, Gastro-esophageal reflux disease with esophagitis K44.9, Diaphragmatic hernia without obstruction or gangrene K29.50, Unspecified chronic gastritis without bleeding K31.89, Other diseases of stomach and duodenum R10.13, Epigastric pain CPT copyright 2017 [employer]. All rights reserved. The codes documented in this report are preliminary and upon cloth examiner review may be revised to meet current compliance requirements. Mike Carr MD 07/13/2020 7:39:47 AM This report has been signed electronically. Number of Addenda: 0 Note Initiated On: 07/13/2020 7:00 AM
--- NOTE | 2020-07-13 07:43 | OP.COLON_ITS ---
Patient Name: Haris Greene Procedure Date: 07/13/2020 7:20 AM Date of : 1955 Age: 65 Procedure: Colonoscopy Indications: Chronic diarrhea Providers: Mike Carr MD Referring MD: Mike Singh Medicines: See the Anesthesia note for documentation of the administered medications Patient Profile: Last Colonoscopy: none. The patient's first colonoscopy is today. Complications: No immediate complications. Procedure: Pre-Anesthesia Assessment: - Prior to the procedure, a History and Physical was performed, and patient medications and allergies were reviewed. The patient's tolerance of previous anesthesia was also reviewed. The risks and benefits of the procedure and the sedation options and risks were discussed with the patient. All questions were answered, and informed consent was obtained. Prior Anticoagulants: The patient has taken no previous anticoagulant or antiplatelet agents. ASA Grade Assessment: II - A patient with mild systemic disease. After reviewing the risks and benefits, the patient was deemed in satisfactory condition to undergo the procedure. After I obtained informed consent, the scope was passed under direct vision. Throughout the procedure, the patient's blood pressure, pulse, and oxygen saturations were monitored continuously. The colonoscope was introduced through the anus and advanced to the cecum, identified by appendiceal orifice and ileocecal valve. The colonoscopy was performed without difficulty. The patient tolerated the procedure well. The quality of the bowel preparation was good. The ileocecal valve and the appendiceal orifice were photographed. Scope In: 7:21:36 AM Scope Withdrawal Time 0 hours 6 minutes 47 seconds Scope Out: 7:33:33 AM Total Procedure Duration Time 0 hours 11 minutes 57 seconds Findings: The digital rectal exam findings include non-thrombosed external hemorrhoids, non-thrombosed internal hemorrhoids and internal hemorrhoids that prolapse with straining, but spontaneously regress to the resting position (Grade II). Pertinent negatives include slightly nodular, smaller prostate. Multiple diverticula were found in the sigmoid colon and descending colon. Biopsies for histology were taken with a cold forceps from the entire colon for evaluation of microscopic colitis. The exam was otherwise without abnormality. Impression: - Non-thrombosed external hemorrhoids, non-thrombosed internal hemorrhoids and internal hemorrhoids that prolapse with straining, but spontaneously regress to the resting position (Grade II) found on digital rectal exam. - Diverticulosis in the sigmoid colon and in the descending colon. Biopsied. - The examination was otherwise normal. Recommendation: - Discharge patient to home. - Resume previous diet. - Continue present medications. - Repeat colonoscopy in 10 years for screening purposes. - Telephone my office for pathology results in 1 week. Procedure Code(s): --- Professional --- 34192, Colonoscopy, flexible; with biopsy, single or multiple Diagnosis Code(s): --- Professional --- K64.1, Second degree hemorrhoids K64.4, Residual hemorrhoidal skin tags K52.9, Noninfective gastroenteritis and colitis, unspecified K57.30, Diverticulosis of large intestine without perforation or abscess without bleeding CPT copyright 2017 [employer]. All rights reserved. The codes documented in this report are preliminary and upon security system technician review may be revised to meet current compliance requirements. Mike Carr MD 07/13/2020 7:42:42 AM This report has been signed electronically. Number of Addenda: 0 Note Initiated On: 07/13/2020 7:20 AM
--- NOTE | 2020-07-13 07:43 | OP.CCLET_ITS ---
07/13/2020 Mike Singh [address] [place] [address] Re : Colonoscopy procedure for [facility] Dear Dr. Singh This procedure was performed on Monday, July 13, 2020. My impressions and recommendations are as follows: Impressions : - Non-thrombosed external hemorrhoids, non-thrombosed internal hemorrhoids and internal hemorrhoids that prolapse with straining, but spontaneously regress to the resting position (Grade II) found on digital rectal exam. - Diverticulosis in the sigmoid colon and in the descending colon. Biopsied. - The examination was otherwise normal. Recommendations : - Discharge patient to home. - Resume previous diet. - Continue present medications. - Repeat colonoscopy in 10 years for screening purposes. - Telephone my office for pathology results in 1 week. My findings are described in the full procedure note, which is enclosed. If I can be of further assistance, please feel free to contact me at Doctor phone number(s): Work: . Sincerely, Mike Carr MD 07/13/2020 7:42:42 AM This report has been signed electronically.
== END 2020-07-13 08:32 | disposition home or self-care (01) ==
LOC: EN 06:00 → AC 06:01
PROVIDERS: PCP Family Medicine; Referring Provider Family Medicine; Visit Provider Surgery
PROC: 0DJD8ZZ Inspection of Lower Intestinal Tract, Via Natural or Artificial Opening Endoscopic (ICD-10-PCS; CPT 45378; principal; 2020-07-13 07:10)
DX: K52.9 Noninfective gastroenteritis and colitis, unspecified (principal); Z79.899 Other long term (current) drug therapy; L40.50 Arthropathic psoriasis, unspecified; M79.7 Fibromyalgia; I10 Essential (primary) hypertension; M19.90 Unspecified osteoarthritis, unspecified site; Z20.828 Contact with and (suspected) exposure to other viral communicable diseases; K44.9 Diaphragmatic hernia without obstruction or gangrene; K29.50 Unspecified chronic gastritis without bleeding; K21.00 Gastro-esophageal reflux disease with esophagitis, without bleeding; K31.89 Other diseases of stomach and duodenum; K57.30 Diverticulosis of large intestine without perforation or abscess without bleeding; K64.4 Residual hemorrhoidal skin tags; K64.1 Second degree hemorrhoids
CPT/HCPCS: 43239; 45380; 87426; 88305; 88312; 88313; 88342; J7120; J2405

== ENCOUNTER → 2024-03-05 | Outpatient (CLI) | payer OTHER, SELFPAY ==
[2024-03-05 10:41] LABS: ALB/GLOB Ratio 1.1 RATIO (0.9-2.4); AST(SGOT) 42 U/L (15-37); Alanine Aminotransfer ALT/SGPT 75 U/L (16-61); Alkaline Phosphatase 98 U/L (45-117); Anion Gap 4 (5-15); BUN 25 mg/dL (7-18); BUN/Creat Ratio 18.9 RATIO (10-20); Calcium,Total 9.6 mg/dL (8.5-10.1); Chloride 109 mmol/L (98-107); Cholesterol 174 mg/dL (200); Creatinine, Serum 1.32 mg/dL (0.70-1.30); EST Glomerular Filtration Rate 57 mL/min (>60); Est Glom Filt Rate - Afr Amer 69 mL/min (>60); Globulin 3.7 g/dL (2.2-4.2); Glucose 97 mg/dL (74-106); High Density Lipoprotein 31 mg/dL; PSA,Total - Annual Screen 0.42 ng/mL (0.00-4.00); Potassium 4.2 mmol/L (3.5-5.1); Protein, Total 7.7 g/dL (6.4-8.2); Sodium Level 138 mmol/L (136-145); Triglycerides 341 mg/dL; Very Low Density Lipoprotein 68 mg/dL (5-40)
== END | disposition home or self-care (01) ==
LOC: LAB 09:16
PROVIDERS: PCP Family Medicine; Referring Provider Family Medicine; Visit Provider Family Medicine
DX: Z13.1 Encounter for screening for diabetes mellitus (principal); Z13.220 Encounter for screening for lipoid disorders; Z12.5 Encounter for screening for malignant neoplasm of prostate
CPT/HCPCS: 36415; 80053; 80061; 84153; G0103

== ENCOUNTER → 2024-04-15 | Outpatient (CLI) | payer OTHER, SELFPAY ==
--- NOTE | 2024-04-15 17:00 | RAD_ITS ---
STUDY: X-RAY - LUMBOSACRAL SPINE REASON FOR EXAM: Male, 69 years old patient with intervertebral disc degeneration, lumbosacral region. TECHNIQUE: 7 view(s) of the lumbosacral spine were obtained. COMPARISON: Radiographs of lumbar spine dated February 05, 2018. FINDINGS: Lateral views are obtained with the patient in flexion, extension and neutral positions. There is a straightening of the normal lordosis in general. There is decreased range of motion with flexion and extension. There is no substantial scoliosis. There is normal alignment of the vertebrae. There is multilevel endplate spondylosis of the lumbar vertebrae. There is multi-level degenerative disc disease with multi-level disc space narrowing. There is multilevel degenerative arthropathy of the facet joints. There is no definite spondylolysis. Normal bilateral sacral ala, sacroiliac joints, and visualized sacrum. There are calcifications visible in the region of the kidneys that suggests nonobstructing renal calculi. There are calcifications of the abdominal aorta. RAD/L/S Spine Comp/w Bending Views IMPRESSION: 1. Multilevel degenerative changes of the lumbar spine as described. 2. Nonobstructing renal calculi. Electronically Signed: Liza Murray MD at 8:01 EDT ,
== END | disposition home or self-care (01) ==
PROVIDERS: PCP Family Medicine; Referring Provider Anesthesiology Pain Medicine; Visit Provider Anesthesiology Pain Medicine
DX: M51.37 Other intervertebral disc degeneration, lumbosacral region (principal)
CPT/HCPCS: 72114

== ENCOUNTER 2024-07-14 10:36 | Day surgery (SDC) | payer OTHER, SELFPAY ==
[2024-07-14 11:54] VITALS: BP 142/84; PULSE 59; RESP 16; TEMP 36.4; O2SAT 98; BMI 29.6
--- NOTE | 2024-07-14 13:43 | RAD_ITS ---
PROCEDURE: Caudal block. DATE OF EXAMINATION: July 14, 2024. INDICATION: Male, 69 years old. Chronic low back pain. FLUOROSCOPY TIME (if supplied): (4.9 seconds) minutes/seconds. 3.1 mGy. One fluoroscopic image provided. RAD/Fluor Guidance for Spine Inj IMPRESSION: Intraoperative imaging provided for caudal block. Electronically Signed: Rohit Cadet MD at 15:35 EST ,
[2024-07-14] MEDS: MethylPREDNISolone Acetate 80 MG/ML Vial (13:46)
[2024-07-14] MEDS: 0.9% Normal Saline (Pres. free 10 ML Vial (13:47)
[2024-07-14] MEDS: Bupivacaine 0.25% 30 ML Vial (13:47)
[2024-07-14] MEDS: Lidocaine 1% (5 ml sdv) 5 ML Vial (13:48)
--- NOTE | 2024-07-14 13:49 | PCM.OPRPT ---
Operative Report (Standard) Operative Information Date of Procedure: 07/14/24 Pre-Operative Diagnosis: 0 Post-Operative Diagnosis: 0 Surgery/Procedure Performed: 0 print line operator: No Type of Anesthesia: Local RN Documented Start/Stop Times: Operation Date: 07/14/24 12:20 Case Time Into Pre-Op 07/14/24 11:35 Out of Pre-Op 07/14/24 13:36 Into Room 07/14/24 13:43 Procedure Start 07/14/24 13:46 Procedure Start Time: 13:50 Procedure Stop Time: 13:50 Select all DRAINS/GRAFTS/IMPLANTS that apply: None Estimated Blood Loss: 0 Fluids Replaced: 0 Specimen collected: No Description of surgery: PREOPERATIVE DIAGNOSIS: Lumbosacral radiculopathy, lumbosacral through this disease, lumbosacral spinal stenosis POSTOPERATIVE DIAGNOSIS:Lumbosacral radiculopathy, lumbosacral through this disease, lumbosacral spinal stenosis PROCEDURE PERFORMED: Diagnostic/therapeutic caudal epidural steroid injection under fluoroscopic guidance. ANESTHESIA: Local BLOOD LOSS: Minimal. COMPLICATIONS: None. DESCRIPTION OF PROCEDURE: History and physical of today was reviewed. Risks and benefits of the procedure were explained. The patient understood and agreed to proceed. Informed consent was obtained. IV inserted per routine protocol. The patient was taken to the operating room and placed in the prone position with a pillow positioned underneath the abdomen. The lower back and tailbone area was prepped and draped in a sterile fashion using iodine x3. Under fluoroscopy guidance on a lateral view, the caudal space was identified. The skin and subcutaneous tissue was anesthetized with approximately 3 mL of 1% lidocaine using a 25-gauge regular needle. Under direct visualization with fluoroscopy, using a 22-gauge 3-1/2-inch spinal needle, the needle was advanced via the skin through the sacral hiatus. The tip of the needle was passed through the sacrococcygeal ligament and advanced to approximately S4 area. After negative aspiration of blood or CSF, a total of 3 mL of contrast was injected to confirm correct placement of the needle as well as cephalad spread. The spread was followed to approximately L5 area. After confirmation on AP as well as lateral view and repeated negative aspiration, a total of 15 mL of preservative-free 0.125% Marcaine with 80 mg of Depo-Medrol was injected easily. The needle was then removed intact. The patient experienced no sign or symptoms of intrathecal or intravascular injection. The patient experienced no paresthesia. The procedure was completed without any apparent difficulty or any complications. The patient appeared to tolerate it well. ASSESSMENT AND PLAN: This is a 69-year-old male with lumbosacral radiculopathy, lumbosacral degenerative disease, lumbosacral spinal stenosis status post diagnostic/therapeutic caudal procedure injection under fluoroscopic guidance, patient will continue his current medications, patient will follow in approximately 2 weeks for reevaluation. Surgical Findings: 0 Complications Complications: No
[2024-07-14 14:06] VITALS: BP 140/73; BP 142/84; PULSE 60; RESP 16; TEMP 36.3; O2SAT 99
== END 2024-07-14 14:26 | disposition home or self-care (01) ==
LOC: SDC 10:37 → AC 11:42
PROVIDERS: PCP Family Medicine; Referring Provider Anesthesiology Pain Medicine; Visit Provider Anesthesiology Pain Medicine
PROC: 3E0S3BZ Introduction of Anesthetic Agent into Epidural Space, Percutaneous Approach (ICD-10-PCS; CPT 62282; principal; 2024-07-14 12:15)
DX: M54.17 Radiculopathy, lumbosacral region (principal); M48.07 Spinal stenosis, lumbosacral region; Z79.899 Other long term (current) drug therapy
CPT/HCPCS: 62323; 01992; 64483; 77003

== ENCOUNTER → 2025-03-24 | Outpatient (CLI) | payer OTHER, SELFPAY ==
[2025-03-24 11:53] LABS: AST(SGOT) 37 U/L (<=37); Alanine Aminotransfer ALT/SGPT 48 U/L (<=46); Albumin, Serum 4.5 g/dL (3.4-4.8); Alkaline Phosphatase 83 U/L (40-129); Anion Gap 14 (5-15); BUN 26 mg/dL (4-19); BUN/Creat Ratio 24.1 RATIO (10-20); Calcium,Total 10.0 mg/dL (7.6-11.0); Carbon Dioxide 20.8 mmol/L (21.0-32.0); Chloride 103 mmol/L (98-108); Cholesterol 191 mg/dL (<=200); Globulin 3.1 g/dL (2.2-4.2); Glucose 100 mg/dL (70-99); Low Density Lipoprotein Calc. 103 mg/dL; Potassium 4.5 mmol/L (3.3-5.1); Triglycerides 246 mg/dL; Very Low Density Lipoprotein 49 mg/dL (5-40); cholesterol:hdl ratio screen 4.91
== END | disposition home or self-care (01) ==
LOC: LAB 10:19
PROVIDERS: PCP Family Medicine; Referring Provider Family Medicine; Visit Provider Family Medicine
DX: I10 Essential (primary) hypertension (principal); E78.5 Hyperlipidemia, unspecified
CPT/HCPCS: 36415; 80053; 80061